=== PATIENT | male | born 1950 | race Caucasian/White ===

== ENCOUNTER 2022-12-15 01:45 | Inpatient (IN) | payer MEDICARE ==
[2022-12-15] MEDS ORDERED: Ipratropium/Albuterol 3 ML NEB ONE (02:14)
[2022-12-15 02:18] LABS: #Monocytes 0.5 10x3/uL (0.0-1.1); #Neutrophils 11.4 10x3/uL (1.5-8.4); %Basophils 0.3 % (0.0-2.0); %Eosinophils 0.2 % (0.0-6.0); %Lymphocytes 6.2 % (18.0-47.0); %Monocytes 3.5 % (0.0-10.0); %Neutrophils 89.2 % (40.0-75.0); Hemoglobin 14.9 g/dL (13.5-17.5); Mean Corpuscular HGB CONC 32.3 g/dL (32.0-36.0); Mean Corpuscular Hemoglobin 30.2 pg (27.0-33.0); Mean Corpuscular Volume 93.5 fl (81.2-95.1); Mean Platelet Volume 9.3 fl (7.4-10.4); Platelet Count 310 10x3/uL (150-450); RBC Distribution Width 13.3 % (11.5-14.5); Red Blood Cell (RBC) Count 4.93 10x6/uL (4.32-5.72); White Blood Cell (WBC) Count 12.7 10x3/uL (3.5-10.5)
[2022-12-15 02:34] LABS: ALT (SGPT) 49 U/L (8-55); AST (SGOT) 43 U/L (5-34); Albumin 4.1 g/dL (3.4-4.8); Alkaline Phosphatase 113 U/L (40-110); Anion Gap 19 mmol/L (10-20); BUN (Urea Nitrogen) 19 mg/dL (8.4-25.7); Bilirubin, Total 0.7 mg/dL (0.2-1.2); Calc. Creatinine Clearance 0 mL/min (70-130); Calcium 9.6 mg/dL (7.8-10.44); Carbon Dioxide 23 mmol/L (23-31); Chloride 102 mmol/L (98-107); Estimated GFR 72; Globulin 2.5 g/dL (2.4-3.5); Glucose 292 mg/dL (83-110); Lipase 57 U/L (8-78); Magnesium 2.1 mg/dL (1.6-2.6); Potassium 3.5 mmol/L (3.5-5.1); Protein, Total 6.6 g/dL (5.8-8.1); Sodium 140 mmol/L (136-145)
[2022-12-15] MEDS ORDERED: Furosemide 40 MG/4 ML VIAL ONE ×2 (02:56→10:56)
[2022-12-15 03:05] LABS: CKMB 9.9 ng/mL (0-6.6)
[2022-12-15] MEDS ORDERED: Acetaminophen 325 MG TAB PO PRN (04:11)
[2022-12-15] MEDS ORDERED: Glucagon 1 MG/ML KIT IM PRN ×2 (04:11→13:07)
[2022-12-15] MEDS ORDERED: HumaLOG 300 UNITS/3 ML VIAL SC PRN ×2 (04:11→13:07)
[2022-12-15] MEDS ORDERED: Dextrose 50% Abboject 50 ML SYRINGE SLOW IVP PRN ×2 (04:11→13:07)
[2022-12-15] MEDS ORDERED: Calcium Carbonate 500 MG ChewTAB PO PRN (04:11)
[2022-12-15] MEDS ORDERED: Ondansetron PF 4 MG/2 ML Vial IVP PRN (04:11)
[2022-12-15] MEDS ORDERED: Zolpidem Tartrate 5 MG TAB PO PRN (04:11)
[2022-12-15] MEDS ORDERED: Dextrose 5% in Water 1,000 ML IV PRN ×2 (04:11→13:07)
[2022-12-15] MEDS ORDERED: Nitroglycerin 0.4 MG TAB (25 Tab Bottle) SL PRN ×2 (04:14→12:03)
[2022-12-15] MEDS ORDERED: Labetalol HCl 100 MG/20 ML VIAL SLOW IVP PRN (04:16)
[2022-12-15] MEDS ORDERED: Phenazopyridine HCl 95 MG TAB PO SCH (05:15)
[2022-12-15] MEDS ORDERED: Labetalol HCl 100 MG/20 ML VIAL SLOW IVP SCH (05:15)
[2022-12-15 05:16] VITALS: BMI 24.6
[2022-12-15] MEDS: cefTRIAXone\\ROCEPHIN 1 GM in Sodium Chloride 0.9% 100 ML IVPB SCH (05:28)
[2022-12-15 06:17] LABS: Bilirubin Neg (Negative); Blood, Urine 150 (Negative); Clarity Clear (Clear); Glucose, Urine (Dipstick) 250 mg/dL (Negative); Ketone, Urine 5 mg/dL (Negative); Leukocyte 100 (Negative); Nitrite Negative (Negative); Protein, Urine (Dipstick) 30 mg/dl (Neg-Trace); Urobilinogen Normal mg/dL (Less than 2)
[2022-12-15 06:24] LABS: Bacteria/HPF Rare-Few HPF (None Seen); RBC/HPF 0-3 HPF (0-3); Squamous Epithelial 0-3 HPF (0-3); WBC/HPF 0-3 HPF (0-3)
[2022-12-15] MEDS: Ipratropium/Albuterol 3 ML NEB NEB PRN ×3 (07:37→23:00)
[2022-12-15 08:34] LABS: CKMB 115.3 ng/mL (0-6.6)
[2022-12-15] MEDS ORDERED: Iopamidol 300 61% 100 ML VIAL FS ONE (08:51)
[2022-12-15] MEDS ORDERED: Nitroglycerin 2% Ointment 1 INCH/1 GM Packet TOP SCH (09:00)
[2022-12-15] MEDS ORDERED: Lisinopril 10 MG TAB PO SCH (09:00)
[2022-12-15] MEDS: Aspirin 81 mg Enteric Coated Tablet PO SCH (09:25)
[2022-12-15] MEDS: Metoprolol Tartrate 25 MG TAB PO SCH ×2 (09:25→19:40)
[2022-12-15] MEDS ORDERED: Communication Order-Pharmacy FS SCH (09:45)
[2022-12-15] MEDS ORDERED: Lidocaine 1% MPF 2 ML VIAL ONE (09:54)
[2022-12-15] MEDS ORDERED: Nitroglycerin 50 MG/250 ML BOT 250 ML ONE (09:54)
[2022-12-15] MEDS ORDERED: Heparin 10,000 UNITS/ 10 ML VIAL ONE (09:55)
[2022-12-15] MEDS ORDERED: Adenosine 6 MG/2 ML VIAL ONE (09:56)
[2022-12-15] MEDS ORDERED: Verapamil 5 MG/2 ML VIAL ONE (09:56)
[2022-12-15] MEDS ORDERED: Sodium Chloride 0.9% 1,000 ML ONE (09:56)
[2022-12-15] MEDS ORDERED: Midazolam HCl 2 mg/2 ml Vial ONE (09:58)
[2022-12-15] MEDS ORDERED: fentaNYL 50 mcg/mL 1 mL Vial ONE (09:58)
[2022-12-15 10:32] LABS: Prothrombin Time 11.1 sec (9.5-12.1)
[2022-12-15] MEDS ORDERED: Sodium Chloride 0.9% 200 ML IV PRN (12:03)
[2022-12-15] MEDS: Furosemide 40 MG/4 ML VIAL SLOW IVP SCH (14:07)
[2022-12-15] MEDS: Acetaminophen/Codeine 30-300mg Tablet PO PRN ×3 (14:15→23:23)
[2022-12-15] MEDS: Carvedilol 3.125 MG TAB PO SCH (17:23)
[2022-12-15] MEDS: Phenazopyridine HCl 95 MG TAB PO SCH (19:41)
[2022-12-15] MEDS: Tamsulosin HCl 0.4 MG CAP PO SCH (19:41)
[2022-12-15] MEDS ORDERED: Atorvastatin Calcium 20 MG TAB PO SCH (21:00)
[2022-12-15] MEDS ORDERED: Potassium Chloride 20 MEQ TAB PO SCH (23:59)
[2022-12-16] MEDS: traMADol HCl 50 MG TAB PO SCH ×2 (00:02→00:24)
[2022-12-16] MEDS ORDERED: Morphine 2 MG/ML VIAL SLOW IVP SCH (01:00)
[2022-12-16] MEDS ORDERED: Pramipexole Di-HCl 0.25 MG TAB PO SCH (01:00)
[2022-12-16 03:05] LABS: #Monocytes 0.9 10x3/uL (0.0-1.1); #Neutrophils 12.2 10x3/uL (1.5-8.4); %Basophils 0.1 % (0.0-2.0); %Eosinophils 0.1 % (0.0-6.0); %Lymphocytes 8.1 % (18.0-47.0); %Monocytes 6.5 % (0.0-10.0); %Neutrophils 84.7 % (40.0-75.0); Hemoglobin 12.5 g/dL (13.5-17.5); Mean Corpuscular HGB CONC 31.6 g/dL (32.0-36.0); Mean Corpuscular Hemoglobin 29.6 pg (27.0-33.0); Mean Corpuscular Volume 93.8 fl (81.2-95.1); Mean Platelet Volume 9.8 fl (7.4-10.4); Platelet Count 272 10x3/uL (150-450); RBC Distribution Width 13.3 % (11.5-14.5); Red Blood Cell (RBC) Count 4.22 10x6/uL (4.32-5.72); White Blood Cell (WBC) Count 14.4 10x3/uL (3.5-10.5)
[2022-12-16 03:16] LABS: Anion Gap 16 mmol/L (10-20); BUN (Urea Nitrogen) 26 mg/dL (8.4-25.7); Calc. Creatinine Clearance 79 mL/min (70-130); Calcium 8.6 mg/dL (7.8-10.44); Carbon Dioxide 27 mmol/L (23-31); Cardiac Risk 3.4 (Less than 4.5); Chloride 99 mmol/L (98-107); Cholesterol 116 mg/dl (< 200 Desired); Estimated GFR 85; Glucose 155 mg/dL (83-110); HDL Cholesterol 34 mg/dL (>60 Neg Risk); LDL Cholesterol, Calculated 65 mg/dL; Potassium 3.8 mmol/L (3.5-5.1); Sodium 138 mmol/L (136-145); Triglycerides 83 mg/dL (Less than 150)
[2022-12-16] MEDS ORDERED: Potassium Chloride 20 MEQ TAB PO SCH (03:45)
[2022-12-16] MEDS: cefTRIAXone\\ROCEPHIN 1 GM in Sodium Chloride 0.9% 100 ML IVPB SCH (06:07)
[2022-12-16] MEDS: Furosemide 40 MG/4 ML VIAL SLOW IVP SCH (06:08)
[2022-12-16] MEDS: Aspirin 81 mg Enteric Coated Tablet PO SCH (08:37)
[2022-12-16] MEDS: Phenazopyridine HCl 95 MG TAB PO SCH ×2 (08:37→21:45)
[2022-12-16] MEDS: Guaifenesin DM 100-10/5 ML UDCUP PO PRN ×2 (08:38→21:49)
[2022-12-16] MEDS: Metoprolol Tartrate 25 MG TAB PO SCH (09:41)
[2022-12-16] MEDS: Carvedilol 3.125 MG TAB PO SCH ×2 (09:53→17:40)
[2022-12-16] MEDS: Acetaminophen/Codeine 30-300mg Tablet PO PRN ×3 (09:56→21:48)
[2022-12-16 12:07] LABS: Hemoglobin A1c 5.9 % (4.0-6.0)
[2022-12-16] MEDS: Furosemide 40 MG TAB PO SCH (14:20)
[2022-12-16] MEDS: Ipratropium/Albuterol 3 ML NEB NEB PRN ×2 (20:35→23:04)
[2022-12-16] MEDS: Tamsulosin HCl 0.4 MG CAP PO SCH (21:45)
[2022-12-16] MEDS: Atorvastatin Calcium 40 MG TAB PO SCH (21:45)
[2022-12-16] MEDS: Sacubitril 24MG/Valsartan 26 MG TAB PO SCH (21:45)
[2022-12-17] MEDS: cefTRIAXone\\ROCEPHIN 1 GM in Sodium Chloride 0.9% 100 ML IVPB SCH (07:52)
[2022-12-17] MEDS: Furosemide 40 MG TAB PO SCH ×2 (08:31→15:00)
[2022-12-17] MEDS: Carvedilol 3.125 MG TAB PO SCH ×2 (08:31→18:01)
[2022-12-17] MEDS: Sacubitril 24MG/Valsartan 26 MG TAB PO SCH ×2 (08:31→20:29)
[2022-12-17] MEDS: Phenazopyridine HCl 95 MG TAB PO SCH ×2 (08:31→20:29)
[2022-12-17] MEDS: Acetaminophen/Codeine 30-300mg Tablet PO PRN ×3 (08:32→23:19)
[2022-12-17] MEDS: Aspirin 81 mg Enteric Coated Tablet PO SCH (08:32)
[2022-12-17] MEDS ORDERED: Communication Order-Pharmacy FS SCH (10:15)
[2022-12-17] MEDS: Ipratropium/Albuterol 3 ML NEB NEB PRN (19:45)
[2022-12-17] MEDS: Atorvastatin Calcium 40 MG TAB PO SCH (20:29)
[2022-12-17] MEDS: Tamsulosin HCl 0.4 MG CAP PO SCH (20:29)
[2022-12-17] MEDS: Guaifenesin DM 100-10/5 ML UDCUP PO PRN (20:34)
[2022-12-18] MEDS: cefTRIAXone\\ROCEPHIN 1 GM in Sodium Chloride 0.9% 100 ML IVPB SCH (05:55)
[2022-12-18] MEDS: Sacubitril 24MG/Valsartan 26 MG TAB PO SCH ×2 (10:23→20:14)
[2022-12-18] MEDS: Aspirin 81 mg Enteric Coated Tablet PO SCH (10:23)
[2022-12-18] MEDS: Carvedilol 3.125 MG TAB PO SCH ×2 (10:23→18:35)
[2022-12-18] MEDS: Furosemide 40 MG TAB PO SCH ×2 (10:23→18:35)
[2022-12-18] MEDS: Phenazopyridine HCl 95 MG TAB PO SCH ×2 (10:23→20:13)
[2022-12-18] MEDS: Guaifenesin DM 100-10/5 ML UDCUP PO PRN ×2 (10:32→20:17)
[2022-12-18] MEDS ORDERED: Mometasone/Formoterol 60 PUFF AER INH SCH (11:00)
[2022-12-18] MEDS: Acetaminophen/Codeine 30-300mg Tablet PO PRN ×2 (16:00→20:13)
[2022-12-18] MEDS: Mometasone/Formoterol 60 PUFF AER INH SCH (19:15)
[2022-12-18] MEDS: Ipratropium/Albuterol 3 ML NEB NEB PRN (19:20)
[2022-12-18] MEDS: Atorvastatin Calcium 40 MG TAB PO SCH (20:13)
[2022-12-18] MEDS: Tamsulosin HCl 0.4 MG CAP PO SCH (20:14)
[2022-12-19] MEDS: Ondansetron PF 4 MG/2 ML Vial IVP PRN ×2 (02:15→10:28)
[2022-12-19] MEDS: Acetaminophen/Codeine 30-300mg Tablet PO PRN ×4 (05:16→21:22)
[2022-12-19] MEDS: Ipratropium/Albuterol 3 ML NEB NEB PRN (07:15)
[2022-12-19] MEDS: Mometasone/Formoterol 60 PUFF AER INH SCH ×2 (07:17→19:13)
[2022-12-19] MEDS ORDERED: Furosemide 40 MG TAB PO SCH (08:00)
[2022-12-19] MEDS: Sacubitril 24MG/Valsartan 26 MG TAB PO SCH ×2 (08:59→21:23)
[2022-12-19] MEDS: Aspirin 81 mg Enteric Coated Tablet PO SCH (09:00)
[2022-12-19] MEDS: Phenazopyridine HCl 95 MG TAB PO SCH ×2 (09:01→21:22)
[2022-12-19] MEDS: Carvedilol 3.125 MG TAB PO SCH ×2 (09:02→16:51)
[2022-12-19] MEDS ORDERED: Clopidogrel Bisulfate 75 MG TAB PO SCH (11:00)
[2022-12-19] MEDS: Senokot S 8.6-50 MG TAB PO PRN (16:54)
[2022-12-19] MEDS: Tamsulosin HCl 0.4 MG CAP PO SCH (21:23)
[2022-12-19] MEDS: Atorvastatin Calcium 40 MG TAB PO SCH (21:24)
[2022-12-20] MEDS: Mometasone/Formoterol 60 PUFF AER INH SCH (07:15)
[2022-12-20] MEDS ORDERED: Polyethylene Glycol 3350 17 GM Packet PO PRN (08:18)
[2022-12-20] MEDS: Sacubitril 24MG/Valsartan 26 MG TAB PO SCH (08:53)
[2022-12-20] MEDS: Senokot S 8.6-50 MG TAB PO PRN (08:53)
[2022-12-20] MEDS: Phenazopyridine HCl 95 MG TAB PO SCH (08:54)
[2022-12-20] MEDS: Carvedilol 3.125 MG TAB PO SCH (08:54)
[2022-12-20] MEDS: Acetaminophen/Codeine 30-300mg Tablet PO PRN (08:54)
[2022-12-20] MEDS: Aspirin 81 mg Enteric Coated Tablet PO SCH (08:59)
[2022-12-20] MEDS ORDERED: Clopidogrel Bisulfate 75 MG TAB PO SCH (09:00)
[2022-12-20] MEDS ORDERED: Oxybutynin 5 MG TAB PO SCH (09:00)
[2022-12-20 16:34] VITALS: BP 154/74; TEMP 98.3
== END 2022-12-20 17:00 | disposition home health service (06) | DRG 280 ==
LOC: CSHERS 01:45 → CSHICU 04:46 → CSHTELE 12-16 11:24
PROVIDERS: ADMIT Student in an Organized Health Care Education/Training Program; ATTEND Internal Medicine
PROC: 4A023N7 Measurement of Cardiac Sampling and Pressure, Left Heart, Percutaneous Approach (ICD-10-PCS; principal; 2022-12-15)
PROC: B2111ZZ Fluoroscopy of Multiple Coronary Arteries using Low Osmolar Contrast (ICD-10-PCS; 2022-12-15)
PROC: B2151ZZ Fluoroscopy of Left Heart using Low Osmolar Contrast (ICD-10-PCS; 2022-12-15)
PROC: 5A09457 Assistance with Respiratory Ventilation, 24-96 Consecutive Hours, Continuous Positive Airway Pressure (ICD-10-PCS; 2022-12-15)
DX: I21.4 Non-ST elevation (NSTEMI) myocardial infarction (principal); I50.21 Acute systolic (congestive) heart failure; J96.01 Acute respiratory failure with hypoxia; N39.0 Urinary tract infection, site not specified; I11.0 Hypertensive heart disease with heart failure; F17.210 Nicotine dependence, cigarettes, uncomplicated; N40.0 Benign prostatic hyperplasia without lower urinary tract symptoms; I25.5 Ischemic cardiomyopathy; J44.9 Chronic obstructive pulmonary disease, unspecified; N41.9 Inflammatory disease of prostate, unspecified; I35.0 Nonrheumatic aortic (valve) stenosis; R73.9 Hyperglycemia, unspecified; Z90.89 Acquired absence of other organs; Z82.49 Family history of ischemic heart disease and other diseases of the circulatory system
CPT/HCPCS: 36415; 36416; 71045; 80048; 80053; 80061; 81001; 82553; 83036; 83690; 83735; 83880; 84484; 85025; 85610; 85730; 86850; 86900; 86901; 87086; 93005; 93306; 93458; 94640; 94660; 94664; 94760; 94762; 96372; 96374; 99152; 99153; C1769; C1894; J0153; J0696; J1644; J1650; J1815; J1940; J2250; J2272; J2405; J3010; J3475; J3490; J7050; J7620; Q9967